=== PATIENT | female | born 1970 | race Hispanic/Latino ===

== ENCOUNTER 2018-06-08 14:43 | Emergency (ER) | payer OTHER ==
[~2018-06-08] VITALS: Ht 160 cm; Wt 77.5 kg
[2018-06-08 15:57] LABS: APPEARANCE CLEAR ((CLEAR)); BILIRUBIN NEGATIVE; BLOOD NEGATIVE; COLOR STRAW ((YELLOW)); GLUCOSE (STRIP) >=500; KETONES 20; LEUKOCYTES NEGATIVE; NITRITE NEGATIVE; PROTEIN (STRIP) NEGATIVE; SPECIFIC GRAVITY 1.032 (1.000-1.030); UROBILINOGEN 0.2 MG/DL (0.2-1.0)
[2018-06-08 16:29] LABS: HEMATOCRIT 38.9 % (36.0-46.0); HEMOGLOBIN 13.6 G/DL (11.9-15.5); MCH 28.2 PG (29.0-34.0); MCV 80.7 FL (83-99); PLATELET COUNT 280 K/uL (156-360); RBC DIS.WIDTH-SD 34.9 % (39-53); RED BLOOD COUNT 4.82 M/uL (3.80-5.20); WHITE BLOOD COUNT 8.4 K/uL (4.1-10.2)
[2018-06-08 16:40] LABS: CHLORIDE 98 mEq/L (99-109); POTASSIUM 4.6 mEq/L (3.7-5.4); SODIUM 132 mEq/L (136-147)
[2018-06-08 16:42] LABS: GLUCOSE 376 mg/dL (70-99)
[2018-06-08 16:46] LABS: CREATININE 0.9 mg/dL (0.6-1.3); GFR ESTIMATE (CALCULATED) > 59 mL/min/; UREA NITROGEN (BUN) 12 mg/dL (9-23)
[2018-06-08] MEDS ORDERED: KETOCONAZOLE60 GM TP (17:46)
[2018-06-08] MEDS ORDERED: BASAGLAR K100 UNIT/1 SC (17:46)
[2018-06-08] MEDS ORDERED: NOVOLOG 10100 UNITS/ SC (17:46)
[2018-06-08 18:00] VITALS: BP 131/69
[2018-06-08] MEDS ORDERED: BD ULTRA-FINE1 EAC2 MC (18:53)
[2018-06-08] MEDS ORDERED: INSULIN SYRING1 EA11 MC (18:53)
== END 2018-06-08 18:00 | disposition home or self-care (01) ==
LOC: EME 14:43
PROVIDERS: Nurse Practitioner Family
DX: E11.65 Type 2 diabetes mellitus with hyperglycemia (principal); B35.6 Tinea cruris; Z76.0 Encounter for issue of repeat prescription; Z79.4 Long term (current) use of insulin
CPT/HCPCS: 80048; 81003; 82010; 85027; 99281; 99284; J7030